=== PATIENT | male | born 1945 | race Two or more races ===

== ENCOUNTER → 2018-08-13 | Outpatient (CLI) | payer OTHER | END | disposition home or self-care (01) | LOC: NUCLEAR 07:00 | DX: I25.10 Atherosclerotic heart disease of native coronary artery without angina pectoris (principal) | CPT/HCPCS: 78452; 93017; A9500; J0153 ==

== ENCOUNTER 2019-02-04 10:49 | Outpatient (CLI) | payer OTHER | END 2019-02-04 10:56 | disposition home or self-care (01) | LOC: TOM 10:49 | DX: K75.89 Other specified inflammatory liver diseases (principal); K77 Liver disorders in diseases classified elsewhere; K76.0 Fatty (change of) liver, not elsewhere classified; N20.0 Calculus of kidney; J18.0 Bronchopneumonia, unspecified organism; C34.32 Malignant neoplasm of lower lobe, left bronchus or lung ==

== ENCOUNTER → 2023-04-23 | Day surgery (SDC) | payer OTHER ==
[2023-04-21 11:20] LABS: HEMATOCRIT 42.1 % (39.0-48.0); HEMOGLOBIN 13.8 g/dL (13-16.00); MEAN CELL VOLUME 84.3 fL (80.0-100.00); MEAN CORPUSCULAR HEMOGLOBIN 27.6 pg (27.00-32.0); MEAN CORPUSCULAR HGB CONC 32.7 g/dl (32.0-36.0); PLATELET COUNT 213 K/uL (150-450); RED CELL DISTRIBUTION WIDTH 14.9 % (11.5-14.5)
[2023-04-21 11:21] LABS: PH,URINE 5.5 (5.0-8.0); URINE APPEARANCE Clear; URINE BILIRRUBIN Negative (NEGATIVE); URINE BLOOD Negative; URINE COLOR Yellow; URINE GLUCOSE Negative (NEGATIVE); URINE LEUKOCYTE Negative; URINE NITRATE Negative; URINE PROTEIN Negative (NEGATIVE); URINE UROBILINOGEN 0.2 E.U./dl
[2023-04-21 11:25] LABS: URINE RBC 2.5 uL (0.0-20.8)
[2023-04-21 11:47] LABS: URINE BACTERIA 3.7 uL (0.0-1933); URINE EPITHELIAL CELLS 0.7 uL (0.0-38.8); URINE WBC 0.9 uL (0.0-23.2)
[2023-04-21 12:13] LABS: INR 1.02; PARTIAL THROMBOPLASTIN TIME 27.5 SECONDS (22.0-34.0); PROTHROMBIN TIME 10.7 SECONDS (9.0-11.5)
[2023-04-21 12:17] LABS: BILIRUBIN TOTAL 0.71 mg/dL (0.3-1.2); CALCIUM 9.2 mg/dL (8.5-10.1); CREATININE SERUM 1.44 mg/dL (0.70-1.30); GFR 47.7; GLOBULINA 3.3 G/DL (2.4-3.5); POTASSIUM 4.53 mEq/L (3.5-5.1); TOTAL PROTEIN 7.3 gm/dL (6.4-8.2)
[~2023-04-23] MED LIST: CHILDREN'S ASPI81 MG PO; LIPITOR20 MG PO; MIRALAX17 GM PO; TOPROL XL50 M1 PO; TRAMADOL HCL50 MG PO; TYLENOL ARTHRI650 MG PO
== END | disposition home or self-care (01) ==
LOC: ADM 04-21 10:15 → CIR.AMB 07:25
PROVIDERS: ATTEND Surgery
DX: K40.90 Unilateral inguinal hernia, without obstruction or gangrene, not specified as recurrent (principal); I10 Essential (primary) hypertension; Z20.822 Contact with and (suspected) exposure to COVID-19
CPT/HCPCS: 49507; C1781

== ENCOUNTER 2025-05-02 08:45 | Inpatient (IN) | payer OTHER ==
[~2025-05-02] VITALS: Ht 167.6 cm; Wt 79.8 kg
[2025-05-02] MEDS ORDERED: PEPCID40 MG (10:10)
[2025-05-02] MEDS ORDERED: PROTONIX20 MG PO (10:11)
[2025-05-02] MEDS ORDERED: ARBLI10 MG/1 ML (10:11)
[2025-05-02 10:49] VITALS: BP 160/100
[2025-05-02 11:07] LABS: BASO % 0.7 % (0.1-1.2); EOS # 0.32 (0.04-0.54); EOS % 5.3 % (0.7-7.0); LYMPH # 1.72 (1.18-3.74); LYMPH % 28.2 % (19.3-53.1); MEAN PLATELET VOLUME 9.80 fl (9.4-12.4); MONO # 0.48 (0.24-0.82); MONO % 7.9 % (4.7-12.5); NEUT # 3.52 (1.56-6.13); NEUT % 57.7 % (34.0-71.1); RED CELL DISTRIBUTION WIDTH 13.6 % (11.6-14.4)
[2025-05-02 11:09] LABS: URINE APPEARANCE Clear; URINE BILIRRUBIN Negative (NEGATIVE); URINE BLOOD Negative; URINE COLOR Yellow; URINE GLUCOSE Negative (NEGATIVE); URINE KETONE Negative (NEGATIVE); URINE LEUKOCYTE Negative; URINE NITRATE Negative; URINE PROTEIN Negative (NEGATIVE); URINE UROBILINOGEN 0.2 E.U./dl
[2025-05-02 11:13] LABS: URINE BACTERIA 4.7 uL (0.0-1933); URINE RBC 5.7 uL (0.0-20.8)
[2025-05-02 11:23] LABS: COVID-19 AG NEGATIVE (NEGATIVE)
[2025-05-02 11:37] LABS: INR 1.03
[2025-05-02 11:47] LABS: ALT/SGPT 32.0 U/L (12-78); AST/SGOT 31.0 U/L (15-37); BILIRUBIN TOTAL 0.57 mg/dL (0.3-1.2); BUN CREA RATIO 13.0 (7.0-25.0); CHOL HDL RATIO 3.6 (0-5.0); CREATININE SERUM 1.4 mg/dL (0.70-1.30); GFR 49.01; GLOBULINA 3.0 G/DL (2.4-3.5); GLUCOSE FASTING 98.0 mg/dL (65-100); HDL 43.0 mg/dl (40-60); LDL 80.0 mg/dl (0-130); OSMOLALITY SERUM 291.0 MOSM/KG (275-295); VLDL 30.0 (0-39)
[2025-05-02 11:55] LABS: URINE CAST 0.00 uL (0.0-1.40); URINE EPITHELIAL CELLS 0.6 uL (0.0-38.8); URINE WBC 0.3 uL (0.0-23.2)
[2025-05-09] MEDS ORDERED: BUPIVACAINE HCL 30 ML VIAL IJ ONE (08:00)
[2025-05-09] MEDS ORDERED: VANCOMYCIN HCL 1,000 MG VIAL IR ONE (08:00)
[2025-05-09] MEDS ORDERED: KETOROLAC TROMETHAMINE 60 MG VIAL IM ONE (08:00)
[2025-05-09] MEDS ORDERED: LIDOCAINE HCL 2%/EPINEPHRINE 20ML VIAL IJ ONE (08:00)
[2025-05-09] MEDS ORDERED: CEFAZOLIN SODIUM 1,000 MG VIAL IV ONE (08:00)
[2025-05-09] MEDS ORDERED: TRANEXAMIC ACID 100MG/1ML (1000MG) AMPUL IV ONE ×2 (08:00)
[2025-05-09] MEDS ORDERED: ONDANSETRON HCL 2 MG/ML VIAL IV PRN (10:15)
[2025-05-09] MEDS ORDERED: SODIUM CHLORIDE 0.45 % 1,000 ML IV SCH (10:15)
[2025-05-09] MEDS ORDERED: OxyCODONE HCL 5 MG TABLET (ROXICODONE) PO PRN (10:15)
[2025-05-09] MEDS ORDERED: MORPHINE SULFATE 4 MG/ML CARTRIDGE IV PRN (10:15)
[2025-05-09] MEDS ORDERED: ACETAMINOPHEN 500 MG GEL..CAP PO SCH (12:00)
[2025-05-09 13:04] VITALS: BP 136/78; O2SAT 98
[2025-05-09] MEDS ORDERED: ENALAPRILAT DIHYDRATE 1.25 MG/ML VIAL IV PRN (16:15)
[2025-05-09] MEDS ORDERED: GABAPENTIN 300 MG CAPSULE PO SCH (17:00)
[2025-05-09] MEDS ORDERED: CEFAZOLIN SODIUM 1,000 MG VIAL IV SCH (17:00)
[2025-05-09 17:06] VITALS: BP 119/66; O2SAT 96
[2025-05-09] MEDS ORDERED: FAMOTIDINE/PF 20 MG in 0.9 % SODIUM CHLORIDE 8 ML IV PUSH SCH (21:00)
[2025-05-10 00:11] VITALS: BP 120/68; O2SAT 98
[2025-05-10 06:25] LABS: BASO % 0.3 % (0.1-1.2); EOS # 0.14 (0.04-0.54); EOS % 2.0 % (0.7-7.0); LYMPH # 1.99 (1.18-3.74); LYMPH % 28.8 % (19.3-53.1); MEAN PLATELET VOLUME 9.40 fl (9.4-12.4); MONO # 0.97 (0.24-0.82); NEUT # 3.78 (1.56-6.13); NEUT % 54.6 % (34.0-71.1); RED CELL DISTRIBUTION WIDTH 13.5 % (11.6-14.4)
[2025-05-10 06:41] LABS: MONO % 14.0 % (4.7-12.5)
[2025-05-10] MEDS ORDERED: ELIQUIS2.5 MG PO (08:08)
[2025-05-10] MEDS ORDERED: PERCOCET 5-3251 EACH PO (08:08)
[2025-05-10] MEDS ORDERED: DUI500 PO (08:08)
[2025-05-10 08:28] VITALS: BP 114/59; O2SAT 98
[2025-05-10] MEDS ORDERED: LOSARTAN POTASSIUM 50 MG TABLET PO SCH (09:00)
[2025-05-10] MEDS ORDERED: APIXABAN 2.5 MG TABLET PO SCH (09:00)
[2025-05-10] MEDS ORDERED: ATORVASTATIN CALCIUM 20 MG TABLET PO SCH (09:00)
[2025-05-10] MEDS ORDERED: METOPROLOL SUCCINATE 50 MG TAB.SR.24H PO SCH (09:00)
[2025-05-10] MEDS ORDERED: SENNOSIDES 1 TAB TABLET PO SCH (09:00)
[2025-05-10] MEDS ORDERED: Cyanocobalamin/Mecobalamin 1 TAB.SL SL SCH (12:27)
[2025-05-10] MEDS ORDERED: SOD FERRIC GLUC COMPLX/SUCROSE 62.5 MG/5 ML AMPUL IV SCH (12:27)
[2025-05-10 13:59] LABS: COVID-19 AG NEGATIVE (NEGATIVE)
[2025-05-11 00:30] VITALS: BP 131/70; O2SAT 95
[2025-05-11 07:37] LABS: BASO % 0.4 % (0.1-1.2); EOS # 0.10 (0.04-0.54); EOS % 1.2 % (0.7-7.0); LYMPH # 1.30 (1.18-3.74); LYMPH % 16.2 % (19.3-53.1); MEAN PLATELET VOLUME 10.40 fl (9.4-12.4); MONO # 0.82 (0.24-0.82); MONO % 10.2 % (4.7-12.5); NEUT # 5.75 (1.56-6.13); NEUT % 71.6 % (34.0-71.1); RED CELL DISTRIBUTION WIDTH 13.4 % (11.6-14.4)
[2025-05-11 08:00] VITALS: BP 126/73; O2SAT 95
[2025-05-11] MEDS ORDERED: IRON FUM,PS/FOLIC ACID/VITC/B3 1 CAP CAPSULE PO SCH (09:00)
[2025-05-11 16:00] VITALS: BP 115/69; O2SAT 99
== END 2025-05-11 20:58 | disposition home or self-care (01) | DRG 470 ==
LOC: SURG 05-09 06:00 → O/R 05-09 06:00 → SURG 05-09 08:45
PROVIDERS: ADMIT Orthopaedic Surgery; ATTEND Orthopaedic Surgery
PROC: 0MNN0ZZ Release Right Knee Bursa and Ligament, Open Approach (ICD-10-PCS; 2025-05-09)
PROC: 0SUC07Z Supplement Right Knee Joint with Autologous Tissue Substitute, Open Approach (ICD-10-PCS; 2025-05-09)
PROC: 0SRC0JZ Replacement of Right Knee Joint with Synthetic Substitute, Open Approach (ICD-10-PCS; principal; 2025-05-09 10:30)
DX: M17.11 Unilateral primary osteoarthritis, right knee (principal); M22.11 Recurrent subluxation of patella, right knee